=== PATIENT | female | born 1985 | race Caucasian/White ===

== ENCOUNTER → 2017-11-19 | Outpatient (CLI) | payer OTHER ==
[~2017-11-19] MED LIST: ALBU8HFA2 INH; AMOX500 PO; CEFD300 PO; CYCL10 PO; DIPH50 PO; DULO60 PO; HYDCHL25 PO; IBUP800 PO; LISI5 PO; Levaquin750 MG PO; METO25ER PO; NAPR500 PO; Nuvaring Vagin1 EACH VG; OXYACE5T PO; PRENZ; PROM25 PO; PROP10 PO; Pyridium100 MG PO; RXOXYACE PO; SUCR1 PO; SULTRIDS PO; TEMA15 PO; Ultram50 MG PO; Zofran Odt8 MG SL
[2017-11-23 05:15] LABS: CHLAMYDIA TRACHOMATIS, NAA Negative (Negative); NEISSERIA GONORRHOEAE, NAA Negative (Negative)
== END ==
LOC: LAB SHORT 19:11 → LAB 19:11
PROVIDERS: Registered Nurse Community Health
DX: Z11.3 Encounter for screening for infections with a predominantly sexual mode of transmission (principal)
CPT/HCPCS: 87070; 87205; 87491; 87591

== ENCOUNTER → 2018-10-27 | Outpatient (CLI) | payer OTHER ==
[2018-10-27 11:31] LABS: U Amphetamine Screen Not Detected; U Barbituate Screen Not Detected; U Benzodiazapine Screen DETECTED; U Buprenorphine Screen Not Detected; U Cannabinoids Screen Not Detected; U Cocaine Screen Not Detected; U Methadone Screen Not Detected; U Methamphetamine Screen Not Detected; U Opiates Screen Not Detected; U Oxycodone Screen Not Detected; U Phencyclidine Screen Not Detected; U Propoxyphene Screen Not Detected
== END | disposition home or self-care (01) ==
LOC: LAB 08:43 → LAB SHORT 08:43
PROVIDERS: Nurse Practitioner Family
DX: Z51.81 Encounter for therapeutic drug level monitoring (principal); Z79.899 Other long term (current) drug therapy

== ENCOUNTER → 2019-07-03 | Outpatient (CLI) | payer OTHER ==
[2019-07-03 19:05] LABS: U Amphetamine Screen Not Detected; U Barbituate Screen Not Detected; U Benzodiazapine Screen DETECTED; U Buprenorphine Screen Not Detected; U Cannabinoids Screen Not Detected; U Cocaine Screen Not Detected; U Methadone Screen Not Detected; U Methamphetamine Screen Not Detected; U Opiates Screen Not Detected; U Oxycodone Screen Not Detected; U Phencyclidine Screen Not Detected; U Propoxyphene Screen Not Detected
== END | disposition home or self-care (01) ==
LOC: LAB 15:49 → LAB SHORT 15:49
PROVIDERS: Nurse Practitioner Family
DX: Z51.81 Encounter for therapeutic drug level monitoring (principal); Z79.899 Other long term (current) drug therapy

== ENCOUNTER 2020-01-19 07:07 | Day surgery (SDC) | payer OTHER ==
[~2020-01-19] VITALS: Ht 157.5 cm; Wt 67.0 kg
[~2020-01-19 07:07] MED LIST changes: +FLUT.05NI; +Inderal40 MG; +ZYRTEC10 M2 PO
== END 2020-01-19 10:56 | disposition home or self-care (01) ==
LOC: ORSCSDS 07:07
PROVIDERS: Podiatrist Foot & Ankle Surgery
PROC: 0SBF4ZZ Excision of Right Ankle Joint, Percutaneous Endoscopic Approach (ICD-10-PCS; principal; 2020-01-19 08:30)
PROC: 0YQK0ZZ Repair Right Ankle Region, Open Approach (ICD-10-PCS; principal; 2020-01-19 08:30)
DX: S93.491A Sprain of other ligament of right ankle, initial encounter (principal); M25.371 Other instability, right ankle; I10 Essential (primary) hypertension; Z79.899 Other long term (current) drug therapy
CPT/HCPCS: C1713; J0171; J0690; J2250; J2405; J2704; J2765; J3010; J7120

== ENCOUNTER → 2023-03-16 | Outpatient (CLI) | payer BC | LOC: LAB 17:23 → LAB SHORT 17:23 | DX: R30.0 Dysuria (principal) | CPT/HCPCS: 87086 ==

== ENCOUNTER → 2023-09-17 | Outpatient (CLI) | payer OTHER ==
[~2023-09-17] MED LIST changes: +Prozac20 MG
[2023-09-17 12:32] LABS: Campylobacter Sp Not Detected (NOT DETECT); Cryptosporidium Not Detected (NOT DETECT); Cyclospora Cayetanensis Not Detected (NOT DETECT); E. Coli O157 Not Detected (NOT DETECT); Enteroaggregative E. coli-EAEC Not Detected (NOT DETECT); Enteropathogenic E. coli-EPEC Not Detected (NOT DETECT); Enterotoxigenic E. coli-ETEC Not Detected (NOT DETECT); Plesiomonas Shigelloides Not Detected (NOT DETECT); Salmonella Sp Not Detected (NOT DETECT); Shiga Toxin-prod E. coli-STEC Not Detected (NOT DETECT); Shigella/Enteroin E. coli-EIEC Not Detected (NOT DETECT); Vibrio Cholerae Not Detected (NOT DETECT); Vibrio Sp Not Detected (NOT DETECT); Yersinia Enterocolitica Not Detected (NOT DETECT)
[2023-09-17 12:33] LABS: Adenovirus F 40/41 Not Detected (NOT DETECT); Astrovirus Not Detected (NOT DETECT); Entamoeba Histolytica Not Detected (NOT DETECT); Giardia Lamblia Not Detected (NOT DETECT); Norovirus GI/GII Detected (NOT DETECT); Rotavirus A Not Detected (NOT DETECT); Sapovirus Not Detected (NOT DETECT)
== END | disposition home or self-care (01) ==
LOC: LAB SHORT 09:40 → LAB 09:40
PROVIDERS: Family Medicine
DX: R15.2 Fecal urgency (principal)
CPT/HCPCS: 87507

== ENCOUNTER → 2023-12-29 | Outpatient (CLI) | payer OTHER ==
[2024-01-05 11:26] LABS: HPV HIGH RISK BY TMA Not Detected; HPV SOURCE Cervical
== END ==
LOC: LAB 09:40 → LAB SHORT 09:40
PROVIDERS: Family Medicine
DX: Z12.4 Encounter for screening for malignant neoplasm of cervix (principal)
CPT/HCPCS: 87624; G0123

== ENCOUNTER 2024-07-16 14:07 | Emergency (ER) | payer OTHER ==
[~2024-07-16] VITALS: Ht 157.5 cm; Wt 95.2 kg
[2024-07-16 14:11] VITALS: BP 159/110
[2024-07-16] MEDS ORDERED: DiphenhydrAMINE HCl 50 MG/ML 1ML Vial IV ONE (14:25)
[2024-07-16] MEDS ORDERED: Ketorolac Tromethamine 15mg Vial IV ONE (14:25)
[2024-07-16] MEDS ORDERED: NS 1,000 ML IV SCH (14:25)
[2024-07-16] MEDS ORDERED: Prochlorperazine Edisylate 10 mg Vial IV ONE (14:25)
[2024-07-16] MEDS ORDERED: Cyclobenzaprine HCl 10 MG Tab PO ONE (15:00)
[2024-07-16] MEDS ORDERED: Lidocaine 4% 1 Patch TOP ONE (15:05)
[2024-07-16] MEDS ORDERED: TiZANidine HCl 4 MG Tab PO ONE (15:15)
[2024-07-16] MEDS ORDERED: MethylPREDNISolone Sod Succ 125 MG Vial IV ONE (15:20)
[2024-07-16 15:40] LABS: Source, Urine Clean Catch
[2024-07-16 15:47] LABS: Appearance, Urine Hazy (Clear); Bilirubin, Urine Neg (Neg); Blood, Urine 1+ (Neg); Glucose Qualitative, Urine Neg (Neg); Ketones, Urine Neg (Neg); Leukocyte Esterase, Urine 2+ (Neg); Nitrite, Urine Neg (Neg); Protein, Urine Neg (Neg); Urobilinogen, Urine NORM (Normal)
[2024-07-16 15:54] LABS: Color, Urine Pale Yellow (P-Yellow)
[2024-07-16 15:55] LABS: Amorphous Light (0-Heavy); Bacteria Mod /hpf; Red Blood Cells, Urine 0-2 /hpf (0-2); Squamous Epithelial Cells Mod /hpf (Few)
[2024-07-16] MEDS ORDERED: NITR100CA PO (16:34)
[2024-07-16] MEDS ORDERED: TIZA4 PO (16:34)
[2024-07-16] MEDS ORDERED: LIDO700A20 TOP (16:34)
== END 2024-07-16 16:40 | disposition home or self-care (01) ==
LOC: ER 14:07
PROVIDERS: Physician Assistant
DX: G43.909 Migraine, unspecified, not intractable, without status migrainosus (principal); M54.50 Low back pain, unspecified; G89.29 Other chronic pain; I10 Essential (primary) hypertension; Z88.5 Allergy status to narcotic agent; Z88.8 Allergy status to other drugs, medicaments and biological substances; Z79.899 Other long term (current) drug therapy
CPT/HCPCS: 81001; 87086; 96374; 96375; 99283-25; A9270; J0780; J1200; J1885; J2919; J7030

== ENCOUNTER → 2024-10-11 | Outpatient (CLI) | payer OTHER ==
[~2024-10-11] MED LIST changes: +LIDO700A20 TOP; +NITR100CA PO; +TIZA4 PO
== END | disposition home or self-care (01) ==
LOC: LAB 10:47 → LAB SHORT 10:47
DX: G47.33 Obstructive sleep apnea (adult) (pediatric) (principal); M54.50 Low back pain, unspecified; N20.0 Calculus of kidney; I10 Essential (primary) hypertension
CPT/HCPCS: 85651